=== PATIENT | female | born 1945 | race Caucasian/White ===

== ENCOUNTER 2019-02-12 06:02 | Inpatient (IN) | payer OTHER, SELFPAY ==
[2019-02-10 07:08] VITALS: BMI 37.2
[2019-02-12] VITALS (23 sets, daily range): BP systolic 100–178; BP diastolic 43–96; PULSE 70–110; RESP 10–20; TEMP 36.1–36.8; O2SAT 92–99; BMI 37.8
--- NOTE | 2019-02-12 | DI.RAD.S_ITS ---
PROCEDURE: XR LUMBAR SPINE 2-3V INDICATIONS: L4-5, L5-S1 TLIF FINDINGS: 2 limited intraoperative fluoroscopically stored images of the lower lumbar spine were obtained for intraoperative hardware localization purposes. These images are not meant for diagnostic purposes. Intraoperative findings related to a lumbar spine fusion procedure are present. IMPRESSION: Intraoperative images obtained in the patient's lumbar spine fusion procedure. Dictated by: Kelvin Whitney M.D. on 02/12/2019 at 15:57 Approved by: Kelvin Whitney M.D. on 02/12/2019 at 16:00
[2019-02-12] MEDS: LACTATED RINGERS 1,000 ML 42 ML IV ×2 (07:00→10:31)
[2019-02-12] MEDS: CEFAZOLIN 2 GM/100 ML FROZ.PIGGY IV ×3 (07:45→23:55)
--- NOTE | 2019-02-12 08:51 | SUR.OPER ---
Prone on spine table, head in foam head support, padded chest and pelvic supports, gel pad at knees, bilateral thighs,and between feet; lower legs supported by pillows; nipples, genitalia and toes free of pressure, arms secured on foam padded arm boards at <90 degrees abduction. Tape over blanket at thigh secured to table.
--- NOTE | 2019-02-12 08:57 | SUR.OPER ---
Bruise X2 on patient's left posterior thoracic region noted by Dr. Hermosillo during positioning. Each were reddish with yellow on outer edges. Both were approximately 1 in diameter.
[2019-02-12] MEDS: BUPIVACAINE 0.25% W/ EPI 30 ML VIAL INJ (09:05)
[2019-02-12] MEDS: BUPIVACAINE LIPOSOME 266 MG/20 ML VIAL INJ (09:05)
--- NOTE | 2019-02-12 11:21 | P.OP_ITS ---
Operative Date/Time/Diagnoses Date of procedure: 02/12/19 Time of procedure: 08:19 Pre-op diagnosis: 1. L4-5, L5-S1 spondylolisthesis 2. L4-5, L5-S1 post laminectomy syndrome 3. Spinal stenosis L4-5, L5-S1 Post-op diagnosis: same Procedure & Clinicians Procedure: 1. L4-5, L5-S1 Postero-lateral and posterior interbody fusion 2. L4-5, L5-S1 interbody cage placement. 3. L4-5, L5-S1 decompressive laminectomy with bilateral facetecomies 4. L4-5, L5-S1 Posterior segmental instrumentation 5. Hector of bone marrow from iliac crest 6. Utilization of microsurgical technique and operating microscope Same procedure as scheduled: Yes Indications: Patient has been having chronic back pain and worsening lumbar radiculopathy. Patient failed multiple conservative management with worsening pain weakness and numbness in her lower extremity. Patient has been having difficulty performing activity of daily living. After discussing risks benefits of treatment options, patient elected proceed with surgery. Surgeon: Elier Hermosillo Supervisor [employer]ing: Meredith Elaine Click Yes if Unassisted: No Anesthesia Type: General Operative Notes Closure Type: primary Specimen(s): none sent Prosthetic devices, grafts, tissues, transplants, or devices: GLobus Revolve, Rise cages Applied: catheter Estimated Blood Loss (mL): 150 Blood products transfused: none Procedure in detail: Patient was seen in the preoperative area. Risks and b enefits of the surgery was discussed with the patient. Informed consent was obtained from the patient and placed in the chart. Surgical site was marked. Patient was taken to the operative room. General anesthesia was administered. Prophylactic antibiotic was given to the patient less than 30 min before the incision was made. Patient was placed into a prone position on the Marcellus table. Patient's back was then prepped and draped in the sterile fashion. Time- out was performed at this time. Using AP and lateral C-arm imaging the interval between L4-S1 was identified and marked on patient's back. A 2 inch incision 2 in from midline was made on the left side first. The fascia was incised in line with skin incision. Globus MARS retractors was placed inside the incision and docked onto the L4 and L5 lamina. Using microsurgical technique and operating microscope, a L4 and L5 laminectomy and L4-5 L5-S1 facetectomy was performed using a Kerrison rongeur. During the process of decompression more than 75% of bilateral L4-5 L5-S1 facets were removed in order to decompress the spinal canal and the lateral recess. The L4- 5 L5-S1 level was grossly unstable after the decompression was completed and requiring the fusion procedure. The disc space at L4-5, L5-S1 was identified. And a total diskectomy was performed at L4-5, L5-S1 level. The endplates were decorticated using a rasp and shaver. The total diskectomy and decortication was performed at L4-5, L5-S1 level in order to to accomplish a L4-5, L5-S1 fusion. The local bone from the laminectomy and facetectomy was saved for local bone grafting. After the total diskectomy and decortication was completed, Bio4 bone graft material was combined with local bone that was harvested earlier. At this time, a separate skin is incision was made over the iliac crest. A Jamshidi needle was inserted into the iliac crest through a separate skin incision. 5 cc of bone marrow aspiration was obtained through the separate skin incision using a Jamshidi needle from the iliac crest. The bone marrow aspiration was combined with local bone and the Bio4 bone grafting material. The bone grafting material was placed into the L4-5, L5-S1 interbody space along with two cages, one expandable cage at each level. The cages were expanded to their maximum height using the torque limiting screwdriver. At this time a mirror image incision was made on the right side. The fascia was incised in line with the skin incision. Globus MARS retractor was inserted and docked onto the L4-5, L5-S1 posterolateral gutter. Using the power drill, posterior-lateral decortication was performed at L4-5, L5-S1 level until bleeding cortical bone was identified. The remaining bone grafting material was placed into the L4-5 L5-S1 posterior lateral gutter he order to accomplish posterolateral fusion at the L4-5 L5-S1 levels. Using the double C-arm technique, pedicle screws were placed into the L4, L5, S1 pedicles bilaterally. This was done by placing the Jamshidi needle into the pedicles, then placing the guidewires over the Jamshidi needle, and finally placing the cannulated screws over the guidewires bilaterally. After the pedicle screws were placed, 2 titanium rods was locked into the heads of the pedicle screws using locking caps and torque limiting screwdriver. Total 6 pedicles screws were placed. Threaded toll operator was used to reduce the patient's spondylolisthesis which was done successfully. After all the hardware was placed, and confirmed with AP and lateral C-arm imaging, the wound was then irrigated with sterile normal saline and packed with Ray-Raymon gauze for 3 min to accomplish hemostasis. After the gauze was removed the deep fascia was closed with #1 Vicryl suture. The subcutaneous layer was closed with 2-0 Vicryl. The skin was closed with skin galilea. Patient tolerated the procedure well. There were no complications. Complications: none Condition: stable Disposition: PACU Plan for aftercare: Admit to inpatient hospital
--- NOTE | 2019-02-12 12:41 | SUR.PHASEI ---
pt will arouse after much stimulus and then falls right back to sleep. She does not like to be awake and RN has awakened her frequently.
[2019-02-12] MEDS: hydrOXYzine 50 MG/ML INJ 25 MG IM (13:09)
--- NOTE | 2019-02-12 13:11 | SUR.PHASEI ---
pt awake now and talking states it always takes her a long time for her to wake up from anesthesia.
[2019-02-12] MEDS: OXYCODONE/ACETAMINOPHEN 5/325 TABLET 2 TAB PO (13:19)
[2019-02-12] MEDS: MORPHINE 2 MG/ML INJ IV ×2 (15:30→20:25)
[2019-02-12] MEDS: SODIUM CHLORIDE 0.9% 1,000 ML 100 ML IV (15:30)
--- NOTE | 2019-02-12 16:00 | CM.DANOTE ---
saw patient 02/12/19 at 1500, spoke with patient and , explained tentative plan of care during stay. answered husbands questions concerning insurance coverage and 3 day minimum stay for inpatient. Patient lives at home and ins independant. physically active - including daily long walks. A&O x 4, Anticipates d/c home without needs. PT eval pending, PT. request for pain medicine delivered to primary RN. Plan: Follow for likely discharge home pending PT eval. Discharge Planning/Care Management CM Discharge Assessment Start: 02/12/19 15:53 Freq: Status: Active Protocol: Document 02/12/19 15:54 [facility]Rec: 02/12/19 16:00 [id number] Discharge Planning Assessment Assigned Transitions Manager Rn Elizabeth BENZ/Assigned Designee Name Marco Antonio Dolan Contact Information [phone] Advance Directives? Yes Advance Directives on File No History Provided By Patient Family Member Expected Length of Stay 3 Has Patient been admitted in last 30 No days? Prior Living Arrangements House Household Members spouse Type of transporation used prior to Drives own vehicle admit Independent with ADL's Yes Is patient alert and oriented? Yes Caregiver for Another Yes: Comment plans on going home with at D/c Barriers to Discharge No Discharge Plan Home Referrals Initiated None needed If patient plan is SNF: Has PASSR been No completed? Whiteboard Updated in Patient Room with Yes name and ext. # of Transitions Manager Rn Review Status In Process Please Provide Date Initial DC 02/12/19 Assessment Was Performed Next Review Type Continued Stay Review Pre-Anesthesia Assessment Start: 02/10/19 07:08 Freq: Status: Active Protocol: Document 02/10/19 07:08 [facility] (Rec: 02/10/19 08:18 CAB [id number]) Pre-Anesthesia Assessment Patient Information Reviewed Via Phone Assessment Assessment Completed With Patient Diagnostic Results BMP/CMP CBC EKG Urinalysis Comment Outside labs/EKG 01/22/19 scanned to record Primary Care Provider Kehinde Byers Medical Clearance Received Yes Seen Specialist in Last 12 Months Yes Specialist Seen Orthopedist Comment PCP visit 01/22/19 scanned to record Primary Language Beninese Sheet Rock Hanger Required No Height 172.72 cm Weight 111.13 kg Body Mass Index (BMI) 37.2 Hearing Ability Normal Visual Assist Glasses Dentition Type Teeth, Natural Present Barriers to Learning None Other Aids No Hx Anesthesia Reactions Yes: It takes a lot to take me down and bring me up. Spinal didn't work Hx Family Anesthesia Reaction No Hx Malignant Hyperthermia No Hx Blood Transfusions No Anesthesia Review Requested No Infant Nanny No Alcohol Intake Frequency Other: None Smoking Status Never smoker Substance Use Type does not use Pain Present Pain Reported Musculoskeletal Symptoms Abnormal Gait Back Pain Difficulty Walking Joint Pain Neck Pain Numbness Radiating Pain into Limb Tingling History of Falling (Recent or History of Yes ) Patient is completely paralyzed or No completely immobile Mental Status Oriented to own ability Is patient on oxygen? No Does patient have MOBLEY/SOB No Hx Sleep Apnea Yes CPAP/BIPAP use prescribed and used routinely Will Bring CPAP/BIPAP DOS Yes Currently Taking a Beta Ronel No Can You Climb a Flight of Stairs Without Yes SOB Hx Chest Pain No Hx SOB No Hx Syncope or Dizziness No Anti-Coagulant Therapy No Has a Fmd Teacher No Cardiac Testing No Hx Pacemaker/ICD No Pacemaker Rep Required? No Cardiac Clearance Received Not Applicable Diet Type At Home Regular dysphagia No Bladder Pattern Incontinent Urinary Catheter Present No Hx Urinary Self Catheterization No Diabetes No Patient No Lactating No Hx Drug Resistant Organism No Presence of External or Internal Medical Yes: CPAP, bilat knee, left Devices ankle hardware Have you traveled outside the [facility] [place] in the last 30 days? Marital Status Lives With spouse Prior Living Arrangements House Number of Floors (Floors) One Floor Support System Friend(s) Spouse Patient Discharge Plan Description Return Home Comment Pt advised 3-4 day length of stay per surgeon's office Feels Safe in Current Environment Yes Been Physically Hurt or Threatened By a No Person in Current Environment Do you have thoughts of harming yourself None or others? Are you currently considering suicide? No Do you have a plan to hurt yourself or No Plan others? Do You Have Any Spiritual Beliefs That No May Affect Your HC Choices? Do You Have Any Cultural Practices That No May Affect Your HC Choices? Spiritual Referral None Comment Anabaptism Who Can We Speak to About Patient's Care Family, friends Identifying Code for Release of Patient Declines to issue Information Health Care Proxy/Next of Kin Marco Antonio () Health Care Proxy Emergency Contact Name Marco Antonio () Emergency Contact Advance Directives? Yes Advance Directives on File No Requested Patient Bring Advanced Yes Directives DOS Power of Csm Consultant Yes Power of Csm Consultant Name Marco Antonio () Power of Csm Consultant PAC Instructions Bring CPAP/BIPAP Durable medical equipment Medications to take/avoid Nasal antibiotic No ETOH/petroleum product on skin DOS NPO Post-op transportation Pre-surgical wash Sturdy shoes/comfortable clothes Do not bring valuables and remove jewelry
[2019-02-12] MEDS: OXYCODONE IR 5 MG TABLET 10 MG PO ×2 (18:45→23:58)
[2019-02-12] MEDS: SENNOSIDES 8.6 MG TABLET 17.2 MG PO (18:46)
[2019-02-12] MEDS: DOCUSATE 100 MG CAPSULE PO (18:49)
[2019-02-13] VITALS (7 sets, daily range): BP systolic 109–138; BP diastolic 56–71; PULSE 73–83; RESP 16–18; TEMP 36.8–38.4; O2SAT 93–95
[2019-02-13] MEDS: hydrOXYzine pamoate 25 MG CAPSULE PO ×2 (00:50→08:12)
--- NOTE | 2019-02-13 01:01 | PC.NURSE ---
Addendum entered by Delilah Alberto R.N. 02/13/19 02:56: Declined offer of pain medication at this time and refused to be repositioned. Original Note: Patient is alert and oriented. Breath sounds CTA with RA sat of 94%. HRR. Denies nausea. BT present but denies flatus. Indwelling catheter is patent with clear yellow urine in bag. Dressing to back is CDI. Does have some bruising noted on left side of back. Needing assist to reposition q2h. CMS is intact. Complains of 6/10 pain so was medicated with Oxycodone and now states pain is down to 5/10 so medicated additionally with Vistaril and discussed that if pain doesn't become more tolerable there is IV pain medication she can also have; verbalizes understanding. Wearing foot SCD's. Reports recent fall; fall risk is high and bed alarm is activated.
[2019-02-13] MEDS: SODIUM CHLORIDE 0.9% 1,000 ML 100 ML IV ×3 (03:04→22:42)
[2019-02-13] MEDS: OXYCODONE IR 5 MG TABLET 10 MG PO ×5 (05:19→17:03)
[2019-02-13 05:48] LABS: Hematocrit 34.5 % (36-46); Hemoglobin 11.7 g/dL (12.0-16.0)
[2019-02-13] MEDS: MULTIVITAMIN 1 TABLET 1 TAB PO (08:12)
[2019-02-13] MEDS: PANTOPRAZOLE 20 MG TABLET PO (08:12)
[2019-02-13] MEDS: LOSARTAN 50 MG TABLET 100 MG PO (08:12)
[2019-02-13] MEDS: AMLODIPINE 5 MG TABLET PO (08:12)
[2019-02-13] MEDS: ESCITALOPRAM 10 MG TABLET PO (08:12)
[2019-02-13] MEDS: DOCUSATE 100 MG CAPSULE PO ×2 (08:13→21:02)
--- NOTE | 2019-02-13 09:55 | PT.IIE ---
Current Diagnoses Spondylolisthesis, lumbar region (02/12/19) Spinal stenosis, lumbar region without neurogenic claudication (02/12/19) Postlaminectomy syndrome, not elsewhere classified (02/12/19) Surgery Performed Operation Date: 02/12/19 07:45 Actual Procedures p L4-5,L5-S1 TLIF w/Posterior Instru. - Elier Hermosillo MD Surgical History (Last Updated 02/10/19 @ 07:21 by Ginger Beebe RN) History of arthroplasty of left knee (Acute 08/12/17) History of arthroplasty of right knee (Acute) History of back surgery (Acute) Hx of tonsillectomy (Acute) Medical History (Last Updated 02/10/19 @ 08:03 by Ginger Beebe RN) Ankle fracture, left (Acute) Anxiety (Acute) Arm fracture, left (Acute) Arthritis (Acute) Mejia's esophagus (Acute) Chronic low back pain (Acute) Hiatal hernia (Acute) Impaired vision (Acute) Rosacea (Acute) Sleep apnea (Acute) Physical Therapy Inpatient Evaluation/Re-Eval M1 PT/OT-IP Prior Functional Status Start: 02/13/19 13:06 Freq: NEEDED Status: Active Protocol: Document 02/13/19 09:55 AB (Rec: 02/13/19 13:19 AB [id number]) Medical Review Prior Functional Status Medical History Reviewed Yes Communication able to make needs known Mobility and Gait pt stated that she is independent with all mobilities and ambulation without AD Social History Household Members spouse Living Arrangements House Number of Floors (Floors) One Floor Number of Stairs To Enter/Railing? 2 platform steps to enter without rails Home Environment High Toilet Walk in Shower Built-In Shower Seat Home Equipment Front Wheel Walker Hand Held Shower Grab Bars In Shower Additional Social History Comment pt has an adjustable bed M2 PT-IP Current Condition Start: 02/13/19 13:06 Freq: NEEDED Status: Active Protocol: Document 02/13/19 09:55 AB (Rec: 02/13/19 13:19 AB [id number]) Physical Therapy Current Condition Current Condition Evaluation Date 02/13/19 Treatment Diagnosis s/p L4-S1 fusion/lami; difficulty in walking Onset Date 02/12/19 Precautions Lumbar Precautions Log Roll No Twisting Limit Bending Lifting Restriction of 10 lbs Gait Belt above Incisional Area M3 PT-IP Subjective Start: 02/13/19 13:06 Freq: NEEDED Status: Active Protocol: Document 02/13/19 09:55 AB (Rec: 02/13/19 13:19 AB [id number]) Subjective Physical Therapy Visit Type Type Initial Evaluation Visit Start Time 09:55 Visit Stop Time 10:45 Total Visit Minutes 50 Number of BRAKE OPERATOR HELPER Visits 0 Physical Therapy Visit Comments Patient Comments pt agreeable to do PT Therapy Pain Assessment Pain When Pain Assessed At Rest Pain Present Pain Present Pain Reported Location Lower Back Intensity 6 Scale Used Numeric (1 - 10) Description Burning Pain Management Techniques Apply Cold Re-positioning Timing of Activity with Medications M4 PT-IP Mobility and Gait Start: 02/13/19 13:06 Freq: NEEDED Status: Active Protocol: Document 02/13/19 09:55 AB (Rec: 02/13/19 13:19 AB [id number]) PT-Bed Mobility Assessment Rolling Type of Rolling Log Rolling Level of Assist Maximal Assistance Supine to Sit Supine to Sit Maximum Assistance 1 Person Assistance Scooting Scooting to Edge of Bed Maximum Assistance PT-Transfer Assessment Sit to and From Stand Sit to and from Stand Moderate Assistance 1 Person Assistance Use of Upper Extremities Equipment Transfer Assistive Device Gait Belt Front Wheeled Walker Orthotic/Prosthetic Devices or Brace: No Transfers Transfer Destination Chair Transfer Technique Stand Step Pivot Transfer Ability Level of Assist Maximum Assistance 1 Person Assistance Use of Upper Extremities Comments Mobility Comments BP supine: 114/56 pt completed supine to sit max A and cues. c/o dizziness sitting. BP checked: 128/64. pt completed sit to stand mod A and cues. c/o increase pain to 8/10. unable to ambulate but completed transfer to the chair using FWW max A and cues. BP checked after transfers: 99/55. positioned pt on chair, ice pack provided . BP checked again: 87/49. elevated LE. BP checked: 105/ 57. call light and table placed within pt's reach. informed nurse. Gait Assessment Comments Gait Comments unable at this time PT-Balance Assessment Sitting Balance and Reactions Static Sitting Balance Ability Good Dynamic Sitting Balance Ability Good Standing Balance and Reactions Static Standing Balance Ability Fair Dynamic Standing Balance Ability Fair Device Used FWW M5 PT-IP Objective Assessments Start: 02/13/19 13:06 Freq: NEEDED Status: Active Protocol: Document 02/13/19 09:55 AB (Rec: 02/13/19 13:19 AB [id number]) Orientation Orientation/Cognition Level of Alertness Alert Orientation Name Place Situation Language Function Ability No Deficits Noted Safety Awareness Understands Safety Issues Memory Description No Deficits Noted Gross Range of Motion Lower Extremity ROM Assessment Within Functional Limits Strength Lower Extremity Strength Assessment Bilaterally Impaired Hip 3+/5 Knee 3+/5 Coordination Assessment Gross Coordination Gross Coordination WNL Sensation Assessment Sensation Gross Sensation WNL Muscle Tone Muscle Tone WNL Yes M6 PT-IP Treatment Start: 02/13/19 13:06 Freq: NEEDED Status: Active Protocol: Document 02/13/19 09:55 AB (Rec: 02/13/19 13:19 AB [id number]) Physical Therapy Treatment Education Education Provided Precautions Weight Bearing Status Post-Op Packet Safety M7 PT-IP Assessment and Plan Start: 02/13/19 13:06 Freq: NEEDED Status: Active Protocol: Document 02/13/19 09:55 AB (Rec: 02/13/19 13:19 AB [id number]) PT Summary Assessment and Plan Potential Rehabilitation Potential Fair Status of Condition at Evaluation Evolving Summary Impairments Pain ROM Strength Balance Coordination Bed Mobility Transfers Gait Activity Tolerance Assessment Summary pt requiring max A with mobility and unable to tolerate much with c/o increase pain and also has decrease in BP with upright activity. d/c plan depending on progress but may require SNF rehab. will continue to assess. Goals Bed Mobility Goal Standby Assistance Transfer Goal Standby Assistance Front Wheeled Walker Gait Goal Standby Assistance Front Wheel Walker Gait Distance 150 Other Goals up/down 2 platform steps using FWW CGA Days to Meet Goals 5 Frequency of Treatment Frequency Of Treatment Twice a Day Treatment Plan Physical Therapy Treatment Plan Bed Mobility Training Transfer Training Gait Training Therapeutic Exercise Balance Retraining Post Op Education Discharge Planning Hot or Cold Pack Neuromuscular Re-ed Coordination Retraining Manual Therapy Recommendations To Nursing Amount of Assist Needed 1 Person Assist Discharge Recommendations PT Discharge Recommendations Home with 25/03 Assist Home Health SNF Rehab Other Discharge Recommendations depending on progress: SNF vs home and home health PT
--- NOTE | 2019-02-13 10:23 | PM.PNPO.1 ---
Subjective Date Patient Seen: 02/13/19 Time Patient Seen: 10:23 Interval history: Patient is POD#1 s/p L4-5, L5-S1 TLIF with Dr. Hermosillo. Her pain has been controlled with oxycodone. She has not yet mobilize with PT or moved to chair. Urinary catheter in place. Denies chest pain, shortness of breath, fevers, chills. Exam Vital Signs (past 8 hours): - 02/13/19 05:25 02/13/19 08:00 Temperature 98.3 F 98.5 F Pulse Rate 74 77 Respiratory Rate 18 18 Blood Pressure 124/62 133/71 Pulse Oximetry 95 94 Oxygen Delivery Method Room Air Oxygen Flow Rate 0 Narrative Exam Narrative: 73 year old female resting in bed. Somewhat drowsy but oriented in no acute distress. Dressing in place is clean, dry and intact. Intact dorsiflexion/plantar flexion of the ankle and toes. Sensation intact to light touch. Palpable pedal pulse. Calves soft, compressible bilaterally. Objective Labs Result Diagrams: 02/13/19 05:15 Labs: Laboratory Results - last 24 hr 02/13/19 05:15 Hgb 11.7 L Hct 34.5 L Assessment & Plan Post-op Postoperative Procedures Operation Date: 02/12/19 07:45 Actual Procedures Side Surgeon p L4-5,L5-S1 TLIF w/Posterior Instru. Elier Hermosillo MD Patient doing well. Goals for today include mobilizing with physical therapy and continuing pain control. Cather to remain in place today as she has not yet mobilized and has history of incontinence. Quality VTE Deep Vein Thrombosis/Pulmonary Embolism Present on Admission: No
--- NOTE | 2019-02-13 15:19 | PT.IPTN ---
Current Diagnoses Spondylolisthesis, lumbar region (02/12/19) Spinal stenosis, lumbar region without neurogenic claudication (02/12/19) Postlaminectomy syndrome, not elsewhere classified (02/12/19) Surgery Performed Operation Date: 02/12/19 07:45 Actual Procedures p L4-5,L5-S1 TLIF w/Posterior Instru. - Elier Hermosillo MD Physical Therapy Treatment Note M2 PT-IP Current Condition Start: 02/13/19 13:06 Freq: NEEDED Status: Active Protocol: Document 02/13/19 09:55 AB (Rec: 02/13/19 13:19 AB [id number]) Physical Therapy Current Condition Current Condition Evaluation Date 02/13/19 Treatment Diagnosis s/p L4-S1 fusion/lami; difficulty in walking Onset Date 02/12/19 Precautions Lumbar Precautions Log Roll No Twisting Limit Bending Lifting Restriction of 10 lbs Gait Belt above Incisional Area M3 PT-IP Subjective Start: 02/13/19 13:06 Freq: NEEDED Status: Active Protocol: Document 02/13/19 15:19 AB (Rec: 02/13/19 17:10 AB [id number]) Subjective Physical Therapy Visit Type Type Treatment Note Visit Start Time 15:19 Visit Stop Time 15:49 Total Visit Minutes 30 Number of LAND [employer] RENT[employer] MANAGER Visits 0 Physical Therapy Visit Comments Patient Comments pt agreeable to do PT Therapy Pain Assessment Pain When Pain Assessed At Rest Pain Present Pain Present Pain Reported Location Lower Back Intensity 5 Scale Used Numeric (1 - 10) Pain Management Techniques Re-positioning Timing of Activity with Medications M4 PT-IP Mobility and Gait Start: 02/13/19 13:06 Freq: NEEDED Status: Active Protocol: Document 02/13/19 15:19 AB (Rec: 02/13/19 17:10 AB [id number]) PT-Bed Mobility Assessment Rolling Type of Rolling Log Rolling Level of Assist Moderate Assistance Supine to Sit Supine to Sit Moderate Assistance 1 Person Assistance Bedrails Sit to Supine Sit to Supine Maximum Assistance 1 Person Assistance Scooting Scooting to Edge of Bed Minimal Assistance PT-Transfer Assessment Sit to and From Stand Sit to and from Stand Moderate Assistance 1 Person Assistance Use of Upper Extremities Equipment Transfer Assistive Device Gait Belt Front Wheeled Walker Orthotic/Prosthetic Devices or Brace: No Comments Mobility Comments BP in supine: 147/66 BP prior to walkin/63 BP after walkin/68 Gait Assessment Gait Gait Assistance Required: Minimum Assistance Moderate Assistance Distance (Feet) 40 Able to Maintain Weight Bearing Status Yes During Gait Assistive Devices Assistive Device Gait Belt Front Wheeled Walker Orthotic/Prosthetic Devices or Brace: No Gait Deviations General Gait Pattern Antalgic Decreased Stride Length Decreased Feet Clearance Flexed Trunk Factors Limiting Gait Function Factors Limiting Gait Function Decreased Activity Tolerance Decreased Strength Difficulty Following Directions Limited Range of Motion Pain Poor Balance Poor Safety Awareness Comments Gait Comments pt requiring increase assistance towards end of ambulation with increase unsteadiness and increase trunk flexion. M5 PT-IP Objective Assessments Start: 02/13/19 13:06 Freq: NEEDED Status: Active Protocol: Document 02/13/19 09:55 AB (Rec: 02/13/19 13:19 AB [id number]) Orientation Orientation/Cognition Level of Alertness Alert Orientation Name Place Situation Language Function Ability No Deficits Noted Safety Awareness Understands Safety Issues Memory Description No Deficits Noted Gross Range of Motion Lower Extremity ROM Assessment Within Functional Limits Strength Lower Extremity Strength Assessment Bilaterally Impaired Hip 3+/5 Knee 3+/5 Coordination Assessment Gross Coordination Gross Coordination WNL Sensation Assessment Sensation Gross Sensation WNL Muscle Tone Muscle Tone WNL Yes M6 PT-IP Treatment Start: 02/13/19 13:06 Freq: NEEDED Status: Active Protocol: Document 02/13/19 15:19 AB (Rec: 02/13/19 17:10 AB [id number]) Physical Therapy Treatment Education Education Provided Precautions Safety M7 PT-IP Assessment and Plan Start: 02/13/19 13:06 Freq: NEEDED Status: Active Protocol: Document 02/13/19 15:19 AB (Rec: 02/13/19 17:10 AB [id number]) PT Summary Assessment and Plan Potential Rehabilitation Potential Good Summary Impairments Pain ROM Strength Balance Coordination Bed Mobility Transfers Gait Activity Tolerance Progress Towards Goals Slow Progress due to Pain Slow Progress due to Activity Tolerance Assessment Summary pt is progressing slowly but continues to require mod A with mobility. d/c plan depending on progress. will conduct caregiver training when appropriate and will also complete stair climbing training. pt at this time may require SNF rehab. will continue to assess. Goals Bed Mobility Goal Standby Assistance Transfer Goal Standby Assistance Front Wheeled Walker Gait Goal Standby Assistance Front Wheel Walker Gait Distance 150 Other Goals up/down one platform step using FWW CGA Days to Meet Goals 5 Frequency of Treatment Frequency Of Treatment Twice a Day Treatment Plan Physical Therapy Treatment Plan Bed Mobility Training Transfer Training Gait Training Therapeutic Exercise Balance Retraining Post Op Education Discharge Planning Hot or Cold Pack Neuromuscular Re-ed Coordination Retraining Manual Therapy Other Recommendations and Next Treatment ambulation, caregiver training Focus Recommendations To Nursing Amount of Assist Needed 2 Person Assist Discharge Recommendations PT Discharge Recommendations Home with 25/03 Assist Home Health SNF Rehab
--- NOTE | 2019-02-13 15:33 | PC.NURSE ---
Day Shift Pt worked with PT and had orthostatic BP. UP in chair for over an hour, on return, pt states she is light headed, dizzy and nauseated. Was able to return to bed without incident. Did not check BP. IVF continue to run at ordered rate. Pt had only a few bites of sandwhich at lunch and limited fluid intake. medicated with 10 mg oxy for pain, did not give vistaril this shift.
--- NOTE | 2019-02-13 16:58 | PC.NURSE ---
Patient is A&O x4, pleasant and cooperative w/ staff members and is able to make needs known when nec. Patinet is POD #1, drg. CDI, patient denies any numbness or ting. to BLE, CMS intact and PP are strong and palp. Patient reports pain 8/10 but denies tx while company is visiting. Post company leaving at 1710, pt req. treatment (see MAR for details). Call light w/ in reach, bed in low pos. alarm active. Pt is aware to use call gonzales w/ needs.
--- NOTE | 2019-02-13 17:43 | OT.IP.EVAL ---
Current Diagnoses Spondylolisthesis, lumbar region (02/12/19) Spinal stenosis, lumbar region without neurogenic claudication (02/12/19) Postlaminectomy syndrome, not elsewhere classified (02/12/19) Surgery Performed Operation Date: 02/12/19 07:45 Actual Procedures p L4-5,L5-S1 TLIF w/Posterior Instru. - Elier Hermosillo MD Past Medical History (Last Updated 02/10/19 @ 08:03 by Ginger Beebe RN) Ankle fracture, left (Acute) Anxiety (Acute) Arm fracture, left (Acute) Arthritis (Acute) Mejia's esophagus (Acute) Chronic low back pain (Acute) Hiatal hernia (Acute) Impaired vision (Acute) Rosacea (Acute) Sleep apnea (Acute) Surgical History (Last Updated 02/10/19 @ 07:21 by Ginger Beebe RN) History of arthroplasty of left knee (Acute 08/12/17) History of arthroplasty of right knee (Acute) History of back surgery (Acute) Hx of tonsillectomy (Acute) Occupational Therapy Inpatient Evaluation/Re-Eval M1 PT/OT-IP Prior Functional Status Start: 02/13/19 14:36 Freq: NEEDED Status: Active Protocol: Document 02/13/19 15:22 [facility] (Rec: 02/13/19 17:43 [facility] [id number]) Medical Review Prior Functional Status Medical History Reviewed Yes Communication able to make needs known Mobility and Gait pt stated that she is independent with all mobilities and ambulation without AD Activities of Daily Living and IADL's Pt states able to do with increased time for ADl's. Social History Household Members spouse Living Arrangements House Number of Floors (Floors) One Floor Number of Stairs To Enter/Railing? 2 platform steps to enter without rails Home Environment High Toilet Walk in Shower Built-In Shower Seat Home Equipment Front Wheel Walker Hand Held Shower Grab Bars In Shower Additional Social History Comment pt has an adjustable bed M2 OT-IP Current Condition Start: 02/13/19 14:36 Freq: Status: Active Protocol: Document 02/13/19 15:22 [facility] (Rec: 02/13/19 17:43 [facility] [id number]) Occupational Therapy Current Condition Current Condition Evaluation Date 02/13/19 Treatment Diagnosis Spinal Stenosis Diagnosis Onset Date 02/12/19 Post Operative Precautions Lumbar Precautions Log Roll No Twisting Limit Bending Lifting Restriction of 10 lbs Gait Belt above Incisional Area Weight Bearing Status Weight Bearing Status Weight Bear as Tolerated M3 OT- IP Subjective and Pain Start: 02/13/19 14:36 Freq: Status: Active Protocol: Document 02/13/19 15:22 [facility] (Rec: 02/13/19 17:43 [facility] [id number]) OT- Subjective Occupational Therapy Visit Type Type Initial Evaluation Visit Start Time 15:22 Visit Stop Time 15:49 Total Visit Minutes 27 Occupational Therapy Visit Comments Patient Comments Pt not initially wanting to get up, but able to get up when seen pt with PT in PM. Patient/Caregiver Goals Pt wanting to go home. OT Pain Assessment Pain When Pain Assessed At Rest Pain Present Pain Present Pain Reported Location Lower Back Intensity 7 Scale Used Numeric (1 - 10) M4 OT- IP ADL's Start: 02/13/19 14:36 Freq: Status: Active Protocol: Document 02/13/19 15:22 [facility] (Rec: 02/13/19 17:43 [facility] [id number]) OT ADL-Dressing General Eval Lower Body Dressing Ability Maximum Assistance Areas Needing Assistance Socks OT ADL-Toileting Comments OT Toileting Comments Pt still has catheter in. Educated pt to stand for wiping. Pt states already wears briefs, pt would benefit from BSC at home. OT ADL-Bathing Comments OT Bathing Comments Not ready at this time. M5 OT- IP IADL's Start: 02/13/19 14:36 Freq: Status: Active Protocol: Document 02/13/19 15:22 [facility] (Rec: 02/13/19 17:43 [facility] [id number]) OT-Instrumental Activities of Daily Living Home Safety Awareness Home Safety Comments Pt's will assist for needs at home. Central Office Frame Wirer Central Office Frame Wirer Caregiver Provides Assist M6 OT- IP Functional Cognition Start: 02/13/19 14:36 Freq: Status: Active Protocol: Document 02/13/19 15:22 [facility] (Rec: 02/13/19 17:43 [facility] [id number]) Cognitive Factors Limiting Selfcare Function Cognitive Ability Level of Alertness Alert Patient Orientation Name Place Situation Attention Span Ability Capable of Focused Attention Capable of Sustained Attention Ability to Follow Commands Able to Follow One Step Commands Memory Description Short Term Impaired Safety Awareness Decreased Recall of Precautions Decreased Ability to Apply Precautions Underestimates Need for Assistance Problem Solving Ability Unable to Identify Errors Needs Assist to Identify Solutions Cognitive Comments Cognitive Assessment Comments Pt not able to recall any back precautions, after education still only able to recall 2 out of the 3. Pt needing vc for safety for hand placement coming to stand and sitting. OT- Vision and Hearing OT- Hearing Assessment OT- Hearing Assessment WFL M7 OT- IP Mobility and Balance Start: 02/13/19 14:36 Freq: Status: Active Protocol: Document 02/13/19 15:22 [facility] (Rec: 02/13/19 17:43 [facility] [id number]) OT- Bed Mobility Assessment Rolling Type of Rolling Roll to Right Level of Assistance Moderate Assistance Supine to Sit Supine to Sit Assist Moderate Assistance Sit to Supine Sit to Supine Assist Maximum Assistance Scooting Scooting to Edge of Bed Minimal Assistance OT-Transfer Assessment Sit to and From Stand Sit to and from Stand Moderate Assistance 1 Person Assistance Transfers Transfer Ability Moderate Assistance 1 Person Assistance Technique Transfer Destination Bed Transfer Technique Stand Step Pivot Devices Transfer Assistive Devices Gait Belt Front Wheeled Walker OT- Gait Assessment Gait Gait Assistance Required: Moderate Assistance 1 Person Assist Assistive Devices Assistive Device Gait Belt Front Wheeled Walker Comments Gait Ability Comments Pt MODA x1 with FWW and as tires leans, pushes FWW to the right and needing assist to keep FWW close to her. Pty only able to tolerate walking to the doorway and back. OT- Balance Assessment Sitting Balance and Reactions Static Sitting Balance Ability Good Standing Balance and Reactions Static Standing Balance Ability Fair M8 OT- IP Objective Assessments Start: 02/13/19 14:36 Freq: Status: Active Protocol: Document 02/13/19 15:22 [facility] (Rec: 02/13/19 17:43 [facility] [id number]) OT Gross Range of Motion Upper Extremity Range of Motion Assessment Within Functional Limits OT Strength Upper Extremity Strength Assessment Within Functional Limits M9 OT- IP Assessment and Plan Start: 02/13/19 14:36 Freq: Status: Active Protocol: Document 02/13/19 15:22 [facility] (Rec: 02/13/19 17:43 [facility] [id number]) OT Summary Assessment and Plan Potential Rehabilitation Potential Good Analytic Complexity at Evaluation Low Summary OT Impairments Pain Strength Balance Functional Cognition Functional Mobility Grooming Dressing Toileting Bathing Toilet Transfers Shower Transfers Progress Towards Goals Slow Progress due to Pain Slow Progress due to Medical Issues Slow Progress due to Cognition Assessment Summary Pt low complexity and main barrier are steps, bed mobility and needing extensive assist for ADl's at this time . Pt may benefit from short skilled rehab versus home with 's assist pending caregiver training. Pt mainly worried that she is incontinent and will not be able to get to the bathroom on time. Goals Grooming Goal Standby Assistance Dressing Goal Minimal Assistance Toileting Goal Minimal Assistance Bathing Goal Minimal Assistance Toilet Transfer Goal Standby Assistance Shower Transfer Goal Contact Guard Assistance Patient/Caregiver Education Goal Demonstrate Post-Op Precautions Caregiver Independent Assisting Patient Days to Meet Goals 3 Frequency of Treatment Frequency Of Treatment Once a Day Treatment Plan OT Treatment Plan ADL Training Functional Cognition Training Functional Mobility Patient/Family Education Discharge Planning Other Treatment Recommendations and Next Stand at sink, LB dressing Treatment Focus Discharge Recommendations OT Discharge Recommendations Home with Assistance SNF Rehab Pt would benefit form BSC.
[2019-02-13] MEDS: SENNOSIDES 8.6 MG TABLET 17.2 MG PO (21:02)
[2019-02-14] VITALS (7 sets, daily range): BP systolic 130–151; BP diastolic 64–83; PULSE 74–85; RESP 16–18; TEMP 36.8–38.4; O2SAT 92–98
[2019-02-14] MEDS: ACETAMINOPHEN 325 MG TABLET 650 MG PO ×3 (00:48→20:25)
[2019-02-14] MEDS: OXYCODONE IR 5 MG TABLET 10 MG PO ×3 (01:31→20:25)
--- NOTE | 2019-02-14 03:59 | PC.NURSE ---
Addendum entered and electronically signed by Benny Adorno R.N. 02/14/19 05:56: Pt refused pain medications the first part of the shift. Then stated she needed to call 911, because she was at pain level 12. Pt has been demanding the whole gm. When she hasn't had prompt attention with movement she moved herself and then complained we didn't help her and has shown a passive aggressive attitude toward anything that was asked of her for the rest of the night. Pt. was upset when I stepped out of the room when she needed a boost, I needed to consult with the charge nurse about critical values on another patient. Original Note: Pt is AxOx3, but in quite a bit of pain. Pain level has been 8-9/10 on this shift. Pt has been re-positioned, ice applied, medicated w/ 10mg of oxycodone that is available Q3 PRN. Pt has had elevated temp on shift of 101.1. Pt was given Tylenol and encouraged to use IS and do deep breathing and coughing. Lung sounds are clear and BP 136/62 P 84. Pedal pulses are strong, CMS intact. Dressing is clean/dry and intact.
--- NOTE | 2019-02-14 06:14 | PC.NURSE ---
Barber removed per order. Brief placed on as pt states she is incontinent. Pt advised this underwriter solicitation director that she is very unhappy with the care provided on this shift. States I was in extreme pain and I had to turn myself. This underwriter solicitation director expressed apologies and made every attempt to reposition to level of comfort. After reposition pt declined further needs. This underwriter solicitation director has spoken to INOCENCIA Zapata and CHARLENE Stanley r/t care received. RN and HEAD PAPER TESTER state they have made every attempt to provide proper care and all care is documented. Email sent to [facility] records manager to notify of the complaint.
--- NOTE | 2019-02-14 06:48 | PC.NURSE ---
patient has been unhappy and in pain refused pain meds till later in shift we turned adjusted whenever she asked but she was just unhappy wished she didnt get surgery did everything we could to make her comfortable
[2019-02-14] MEDS: MULTIVITAMIN 1 TABLET 1 TAB PO (08:44)
[2019-02-14] MEDS: DOCUSATE 100 MG CAPSULE PO ×2 (08:44→20:25)
[2019-02-14] MEDS: ESCITALOPRAM 10 MG TABLET PO (08:44)
[2019-02-14] MEDS: LOSARTAN 50 MG TABLET 100 MG PO (08:44)
[2019-02-14] MEDS: AMLODIPINE 5 MG TABLET PO (08:44)
[2019-02-14] MEDS: PANTOPRAZOLE 20 MG TABLET PO (08:45)
--- NOTE | 2019-02-14 10:25 | PT.IPTN ---
Current Diagnoses Spondylolisthesis, lumbar region (02/12/19) Spinal stenosis, lumbar region without neurogenic claudication (02/12/19) Postlaminectomy syndrome, not elsewhere classified (02/12/19) Surgery Performed Operation Date: 02/12/19 07:45 Actual Procedures p L4-5,L5-S1 TLIF w/Posterior Instru. - Elier Hermosillo MD Physical Therapy Treatment Note M2 PT-IP Current Condition Start: 02/13/19 13:06 Freq: NEEDED Status: Active Protocol: Document 02/13/19 09:55 AB (Rec: 02/13/19 13:19 AB [id number]) Physical Therapy Current Condition Current Condition Evaluation Date 02/13/19 Treatment Diagnosis s/p L4-S1 fusion/lami; difficulty in walking Onset Date 02/12/19 Precautions Lumbar Precautions Log Roll No Twisting Limit Bending Lifting Restriction of 10 lbs Gait Belt above Incisional Area M3 PT-IP Subjective Start: 02/13/19 13:06 Freq: NEEDED Status: Active Protocol: Document 02/14/19 10:50 [facility] (Rec: 02/14/19 12:17 GGD [id number]) Subjective Physical Therapy Visit Type Type Treatment Note Visit Start Time 10:25 Visit Stop Time 10:50 Total Visit Minutes 25 Number of DRAINAGE ENGINEER Visits 1 Physical Therapy Visit Comments Patient Comments Pt willing to work with therapy. Therapy Pain Assessment Pain When Pain Assessed At Rest Pain Present Pain Present Pain Reported Location Lower Back Intensity 5 Scale Used Numeric (1 - 10) Pain Management Techniques Re-positioning Timing of Activity with Medications M4 PT-IP Mobility and Gait Start: 02/13/19 13:06 Freq: NEEDED Status: Active Protocol: Document 02/14/19 10:50 [facility] (Rec: 02/14/19 12:17 GGD [id number]) PT-Bed Mobility Assessment Rolling Type of Rolling Log Rolling Roll to Right Level of Assist Standby Assistance Supine to Sit Supine to Sit Minimal Assistance 1 Person Assistance Scooting Scooting to Edge of Bed Standby Assistance PT-Transfer Assessment Sit to and From Stand Sit to and from Stand Contact Guard Assistance Use of Upper Extremities Equipment Transfer Assistive Device Gait Belt Front Wheeled Walker Orthotic/Prosthetic Devices or Brace: No Transfers Transfer Destination Chair Toilet Transfer Ability Level of Assist Contact Guard Assistance Use of Upper Extremities Gait Assessment Gait Gait Assistance Required: Contact Guard Assist 1 Person Assist Distance (Feet) 150 Able to Maintain Weight Bearing Status Yes During Gait Assistive Devices Assistive Device Gait Belt Front Wheeled Walker Orthotic/Prosthetic Devices or Brace: No Gait Deviations General Gait Pattern Antalgic Decreased Stride Length Decreased Feet Clearance Flexed Trunk Factors Limiting Gait Function Factors Limiting Gait Function Decreased Activity Tolerance Decreased Strength Difficulty Following Directions Limited Range of Motion Pain Poor Balance Poor Safety Awareness M5 PT-IP Objective Assessments Start: 02/13/19 13:06 Freq: NEEDED Status: Active Protocol: Document 02/13/19 09:55 AB (Rec: 02/13/19 13:19 AB [id number]) Orientation Orientation/Cognition Level of Alertness Alert Orientation Name Place Situation Language Function Ability No Deficits Noted Safety Awareness Understands Safety Issues Memory Description No Deficits Noted Gross Range of Motion Lower Extremity ROM Assessment Within Functional Limits Strength Lower Extremity Strength Assessment Bilaterally Impaired Hip 3+/5 Knee 3+/5 Coordination Assessment Gross Coordination Gross Coordination WNL Sensation Assessment Sensation Gross Sensation WNL Muscle Tone Muscle Tone WNL Yes M6 PT-IP Treatment Start: 02/13/19 13:06 Freq: NEEDED Status: Active Protocol: Document 02/14/19 10:50 GGD (Rec: 02/14/19 12:17 GGD [id number]) Physical Therapy Treatment Education Education Provided Precautions Safety M7 PT-IP Assessment and Plan Start: 02/13/19 13:06 Freq: NEEDED Status: Active Protocol: Document 02/14/19 10:50 GGD (Rec: 02/14/19 12:17 GGD [id number]) PT Summary Assessment and Plan Summary Assessment Summary Pt improving with mobility. She was able to progress her gait distance. She had improved posture and standing balance. She did need min a for bed mobility. Frequency of Treatment Frequency Of Treatment Twice a Day Treatment Plan Physical Therapy Treatment Plan Bed Mobility Training Transfer Training Gait Training Therapeutic Exercise Balance Retraining Post Op Education Discharge Planning Hot or Cold Pack Neuromuscular Re-ed Coordination Retraining Manual Therapy Recommendations To Nursing Amount of Assist Needed 1 Person Assist Discharge Recommendations PT Discharge Recommendations Home with 25/03 Assist Home Health SNF Rehab
--- NOTE | 2019-02-14 10:28 | PM.PNPO.1 ---
Subjective Date Patient Seen: 02/14/19 Time Patient Seen: 10:28 Interval history: Patient's pain is [id number]. Denies fever chills. No nausea vomiting. Exam Vital Signs (past 8 hours): - 02/14/19 04:56 02/14/19 08:00 02/14/19 08:45 Temperature 98.3 F 99.3 F 99.3 F Pulse Rate 74 83 Respiratory Rate 16 18 Blood Pressure 130/64 151/82 H Pulse Oximetry 94 98 Oxygen Delivery Method Room Air Oxygen Flow Rate 0 Narrative Exam Narrative: Pleasant 73-year-old female resting comfortably in bed in no apparent distress. Dressing is clean, dry and intact. Motor functions intact distal bilateral lower extremities. Sensation grossly intact to light touch. Both legs are warm and dry. Objective Labs Result Diagrams: 02/13/19 05:15 Assessment & Plan Post-op Postoperative Procedures Operation Date: 02/12/19 07:45 Actual Procedures Side Surgeon p L4-5,L5-S1 TLIF w/Posterior Instru. Elier Hermosillo MD Postop day 2. Status post lumbar fusion. Limit bending, twisting, lifting. Mobilize with physical therapy. Likely discharge home tomorrow. Quality VTE Deep Vein Thrombosis/Pulmonary Embolism Present on Admission: No
--- NOTE | 2019-02-14 10:31 | P.PN_ITS ---
Subjective Date Patient Seen: 02/14/19 Time Patient Seen: 10:28 Interval history: Patient's pain is [id number]. Denies fever chills. No nausea vomiting. Exam Vital Signs (past 8 hours): - 02/14/19 04:56 02/14/19 08:00 02/14/19 08:45 Temperature 98.3 F 99.3 F 99.3 F Pulse Rate 74 83 Respiratory Rate 16 18 Blood Pressure 130/64 151/82 H Pulse Oximetry 94 98 Oxygen Delivery Method Room Air Oxygen Flow Rate 0 Narrative Exam Narrative: Pleasant 73-year-old female resting comfortably in bed in no apparent distress. Dressing is clean, dry and intact. Motor functions intact distal bilateral lower extremities. Sensation grossly intact to light touch. Both legs are warm and dry. Objective Labs Result Diagrams: 02/13/19 05:15 Assessment & Plan Post-op Postoperative Procedures Operation Date: 02/12/19 07:45 Actual Procedures Side Surgeon p L4-5,L5-S1 TLIF w/Posterior Instru. Elier Hermosillo MD Postop day 2. Status post lumbar fusion. Limit bending, twisting, lifting. Mobilize with physical therapy. Likely discharge home tomorrow. Quality VTE Deep Vein Thrombosis/Pulmonary Embolism Present on Admission: No
--- NOTE | 2019-02-14 13:04 | PC.NURSE ---
Pt is awake and up to the commode to try and have a bowel movement. Pt passes a lot of gas and went back to bed. She is a 1pa to get out of bed with walker and gaitbelt. Given percolone earlier this morning and helpful for discomfort. Showered with the help of occupational therapy. Dressing changed to back to water proof barrier dressing. Pt napping and visiting with her .
--- NOTE | 2019-02-14 13:33 | OT.IP.TRT ---
Current Diagnoses Spondylolisthesis, lumbar region (02/12/19) Spinal stenosis, lumbar region without neurogenic claudication (02/12/19) Postlaminectomy syndrome, not elsewhere classified (02/12/19) Surgery Performed Operation Date: 02/12/19 07:45 Actual Procedures p L4-5,L5-S1 TLIF w/Posterior Instru. - Elier Hermosillo MD Occupational Therapy Treatment Note M2 OT-IP Current Condition Start: 02/13/19 14:36 Freq: Status: Active Protocol: Document 02/14/19 13:25 CGR (Rec: 02/14/19 13:33 CGR [id number]) Occupational Therapy Current Condition Current Condition Evaluation Date 02/13/19 Treatment Diagnosis Spinal Stenosis Diagnosis Onset Date 02/12/19 Post Operative Precautions Lumbar Precautions Log Roll No Twisting Limit Bending Lifting Restriction of 10 lbs Gait Belt above Incisional Area Weight Bearing Status Weight Bearing Status Weight Bear as Tolerated M3 OT- IP Subjective and Pain Start: 02/13/19 14:36 Freq: Status: Active Protocol: Document 02/14/19 13:25 CGR (Rec: 02/14/19 13:33 CGR [email or web address]) OT- Subjective Occupational Therapy Visit Type Type Treatment Note Visit Start Time 11:05 Visit Stop Time 11:45 Total Visit Minutes 40 Occupational Therapy Visit Comments Patient Comments Pt agreeable to shower. OT Pain Assessment Pain When Pain Assessed After Treatment Pain Present Pain Present Pain Reported Location Lower Back Intensity 7 Scale Used Numeric (1 - 10) M4 OT- IP ADL's Start: 02/13/19 14:36 Freq: Status: Active Protocol: Document 02/14/19 13:25 CGR (Rec: 02/14/19 13:33 CGR [id number]) OT ADL-Grooming General Evaluation Grooming Ability Standby Assistance Areas Needing Assistance Combing/Brushing Hair Face Washing Comments OT Grooming Comments seated in chair after shower OT ADL-Oral Care General Eval Oral Care Ability Standby Assistance Comments Oral Care Comments seated in chiar after shower OT ADL-Dressing General Eval Upper Body Dressing Ability Independent Lower Body Dressing Ability Minimal Assistance Areas Needing Assistance Underpants/Brief Socks Assistive Devices Dressing Assistive Devices Dressing Stick Bargeman Sock Aid OT ADL-Bathing Bathing Type Bathing Type Shower General Evaluation Bathing Ability Standby Assistance Areas Needing Assistance Retrieving/Setting Up Items Wash/Dry Lower Extremities Devices Bathing Equipment Hand Held Shower Sprayer Shower Chair with Arms M5 OT- IP IADL's Start: 02/13/19 14:36 Freq: Status: Active Protocol: Document 02/13/19 15:22 [facility] (Rec: 02/13/19 17:43 [facility] [id number]) OT-Instrumental Activities of Daily Living Home Safety Awareness Home Safety Comments Pt's will assist for needs at home. Tank Truck Loader Tank Truck Loader Caregiver Provides Assist M6 OT- IP Functional Cognition Start: 02/13/19 14:36 Freq: Status: Active Protocol: Document 02/13/19 15:22 [facility] (Rec: 02/13/19 17:43 [facility] [id number]) Cognitive Factors Limiting Selfcare Function Cognitive Ability Level of Alertness Alert Patient Orientation Name Place Situation Attention Span Ability Capable of Focused Attention Capable of Sustained Attention Ability to Follow Commands Able to Follow One Step Commands Memory Description Short Term Impaired Safety Awareness Decreased Recall of Precautions Decreased Ability to Apply Precautions Underestimates Need for Assistance Problem Solving Ability Unable to Identify Errors Needs Assist to Identify Solutions Cognitive Comments Cognitive Assessment Comments Pt not able to recall any back precautions, after education still only able to recall 2 out of the 3. Pt needing vc for safety for hand placement coming to stand and sitting. OT- Vision and Hearing OT- Hearing Assessment OT- Hearing Assessment WFL M7 OT- IP Mobility and Balance Start: 02/13/19 14:36 Freq: Status: Active Protocol: Document 02/14/19 13:25 CGR (Rec: 02/14/19 13:33 CGR [email or web address]) OT- Bed Mobility Assessment Rolling Type of Rolling Log Rolling Level of Assistance Standby Assistance Bedrails Sit to Supine Sit to Supine Assist Standby Assistance Scooting Scooting to Edge of Bed Standby Assistance OT-Transfer Assessment Sit to and From Stand Sit to and from Stand Contact Guard Assistance Transfers Transfer Ability Contact Guard Assistance Technique Transfer Destination Bed Bedside Commode Chair Shower Stall Devices Transfer Assistive Devices Bed Rail Gait Belt Front Wheeled Walker OT- Gait Assessment Gait Gait Assistance Required: Contact Guard Assist Assistive Devices Assistive Device Gait Belt Front Wheeled Walker OT- Balance Assessment Sitting Balance and Reactions Static Sitting Balance Ability Normal Dynamic Sitting Balance Ability Normal Standing Balance and Reactions Static Standing Balance Ability Good Dynamic Standing Balance Ability Good M8 OT- IP Objective Assessments Start: 02/13/19 14:36 Freq: Status: Active Protocol: Document 02/13/19 15:22 [facility] (Rec: 02/13/19 17:43 [facility] [email or web address]) OT Gross Range of Motion Upper Extremity Range of Motion Assessment Within Functional Limits OT Strength Upper Extremity Strength Assessment Within Functional Limits M9 OT- IP Assessment and Plan Start: 02/13/19 14:36 Freq: Status: Active Protocol: Document 02/14/19 13:25 CGR (Rec: 02/14/19 13:33 CGR [email or web address]) OT Summary Assessment and Plan Potential Rehabilitation Potential Excellent Summary OT Impairments Pain Range of Motion Functional Mobility Grooming Dressing Toileting Bathing Toilet Transfers Shower Transfers Progress Towards Goals Slow Progress due to Pain Slow Progress due to Medical Issues Slow Progress due to Cognition Assessment Summary Pt is progressing towards goals but will benefit from rehab upon discharge. Pt is agreeable after realizing fatigue of taking a shower. Goals Grooming Goal Standby Assistance Dressing Goal Minimal Assistance Toileting Goal Minimal Assistance Bathing Goal Minimal Assistance Toilet Transfer Goal Standby Assistance Shower Transfer Goal Contact Guard Assistance Patient/Caregiver Education Goal Demonstrate Post-Op Precautions Caregiver Independent Assisting Patient Days to Meet Goals 2 Frequency of Treatment Frequency Of Treatment Once a Day Treatment Plan OT Treatment Plan ADL Training Functional Cognition Training Functional Mobility Patient/Family Education Discharge Planning Other Treatment Recommendations and Next Stand at sink, LB dressing Treatment Focus Discharge Recommendations OT Discharge Recommendations SNF Rehab
--- NOTE | 2019-02-14 13:37 | CM.DPNOTE ---
Reviewed chart, according to therapy notes, pt may benefit from SNF if proper cg assist is not available at home. Attempted to meet w/pt to review therapy recommendations and pt looked to be sleeping w/ RN Michelle in stating pt has had some chest pain that they are trying to address now. This INFORMATICS SCIENTIST following closely and will attempt another visit to review DCP options w/pt once medically appropriate. Elo Mccauley MSW
--- NOTE | 2019-02-14 13:43 | CM.DPNOTE ---
Reviewed chart. Therapy notes indicate pt may benefit from SNF stay d/t slow progress. Pt plans to DC home w/spouse to assist. Pt has [facility] which will play a role in DCP to SNF if it's needed an if pt agrees. Attempted to review DCP options w/pt and she was working w/OT CJ, pt very tired afterwards and wanting to rest. This ACTUARIAL INTERNSHIP will return tomorrow, Saturday, and review DCP w/pt to discuss planning for safe DC. VIPUL Coello
--- NOTE | 2019-02-14 15:46 | PT.IPTN ---
Current Diagnoses Spondylolisthesis, lumbar region (02/12/19) Spinal stenosis, lumbar region without neurogenic claudication (02/12/19) Postlaminectomy syndrome, not elsewhere classified (02/12/19) Surgery Performed Operation Date: 02/12/19 07:45 Actual Procedures p L4-5,L5-S1 TLIF w/Posterior Instru. - Elier Hermosillo MD Physical Therapy Treatment Note M2 PT-IP Current Condition Start: 02/13/19 13:06 Freq: NEEDED Status: Active Protocol: Document 02/13/19 09:55 AB (Rec: 02/13/19 13:19 AB [id number]) Physical Therapy Current Condition Current Condition Evaluation Date 02/13/19 Treatment Diagnosis s/p L4-S1 fusion/lami; difficulty in walking Onset Date 02/12/19 Precautions Lumbar Precautions Log Roll No Twisting Limit Bending Lifting Restriction of 10 lbs Gait Belt above Incisional Area M3 PT-IP Subjective Start: 02/13/19 13:06 Freq: NEEDED Status: Active Protocol: Document 02/14/19 15:44 GGD (Rec: 02/14/19 15:46 GGD [id number]) Subjective Physical Therapy Visit Type Type Treatment Note Visit Start Time 15:10 Visit Stop Time 15:40 Total Visit Minutes 30 Number of CLINICAL RESEARCH PHYSICIAN Visits 2 Physical Therapy Visit Comments Patient Comments Pt states she is tired. Therapy Pain Assessment Pain When Pain Assessed At Rest Pain Present Pain Present Pain Reported M4 PT-IP Mobility and Gait Start: 02/13/19 13:06 Freq: NEEDED Status: Active Protocol: Document 02/14/19 15:44 GGD (Rec: 02/14/19 15:46 GGD [id number]) PT-Bed Mobility Assessment Rolling Type of Rolling Log Rolling Roll to Right Level of Assist Standby Assistance Supine to Sit Supine to Sit Standby Assistance 1 Person Assistance Bedrails Sit to Supine Sit to Supine Minimal Assistance 1 Person Assistance Bedrails Scooting Scooting to Edge of Bed Standby Assistance PT-Transfer Assessment Sit to and From Stand Sit to and from Stand Contact Guard Assistance Use of Upper Extremities Equipment Transfer Assistive Device Gait Belt Front Wheeled Walker Orthotic/Prosthetic Devices or Brace: No Transfers Transfer Destination Chair Toilet Transfer Ability Level of Assist Contact Guard Assistance Use of Upper Extremities Gait Assessment Gait Gait Assistance Required: Contact Guard Assist 1 Person Assist Distance (Feet) 200 Able to Maintain Weight Bearing Status Yes During Gait Assistive Devices Assistive Device Gait Belt Front Wheeled Walker Orthotic/Prosthetic Devices or Brace: No Gait Deviations General Gait Pattern Antalgic Decreased Stride Length Decreased Feet Clearance Flexed Trunk Factors Limiting Gait Function Factors Limiting Gait Function Decreased Activity Tolerance Decreased Strength Difficulty Following Directions Limited Range of Motion Pain Poor Balance Poor Safety Awareness M5 PT-IP Objective Assessments Start: 02/13/19 13:06 Freq: NEEDED Status: Active Protocol: Document 02/13/19 09:55 AB (Rec: 02/13/19 13:19 AB [id number]) Orientation Orientation/Cognition Level of Alertness Alert Orientation Name Place Situation Language Function Ability No Deficits Noted Safety Awareness Understands Safety Issues Memory Description No Deficits Noted Gross Range of Motion Lower Extremity ROM Assessment Within Functional Limits Strength Lower Extremity Strength Assessment Bilaterally Impaired Hip 3+/5 Knee 3+/5 Coordination Assessment Gross Coordination Gross Coordination WNL Sensation Assessment Sensation Gross Sensation WNL Muscle Tone Muscle Tone WNL Yes M6 PT-IP Treatment Start: 02/13/19 13:06 Freq: NEEDED Status: Active Protocol: Document 02/14/19 15:44 GGD (Rec: 02/14/19 15:46 GGD [id number]) Physical Therapy Treatment Education Education Provided Precautions Safety M7 PT-IP Assessment and Plan Start: 02/13/19 13:06 Freq: NEEDED Status: Active Protocol: Document 02/14/19 15:44 GGD (Rec: 02/14/19 15:46 GGD [id number]) PT Summary Assessment and Plan Summary Assessment Summary Pt improving slowly. She needed less assist for supine to sit. She did need min A for sit to supine. She able to progress her gait distance. Frequency of Treatment Frequency Of Treatment Twice a Day Treatment Plan Physical Therapy Treatment Plan Bed Mobility Training Transfer Training Gait Training Therapeutic Exercise Balance Retraining Post Op Education Discharge Planning Hot or Cold Pack Neuromuscular Re-ed Coordination Retraining Manual Therapy Recommendations To Nursing Amount of Assist Needed 1 Person Assist Discharge Recommendations PT Discharge Recommendations Home with Assistance SNF Rehab
[2019-02-14] MEDS: SENNOSIDES 8.6 MG TABLET 17.2 MG PO (20:25)
[2019-02-14] MEDS: hydrOXYzine pamoate 25 MG CAPSULE PO (20:36)
[2019-02-15] VITALS (8 sets, daily range): BP systolic 134–150; BP diastolic 71–86; PULSE 80–85; RESP 16–18; TEMP 36.5–37.4; O2SAT 94–97
[2019-02-15] MEDS: OXYCODONE IR 5 MG TABLET 10 MG PO ×5 (03:35→23:43)
--- NOTE | 2019-02-15 07:57 | PM.PNPO.1 ---
Subjective Date Patient Seen: 02/15/19 Time Patient Seen: 07:57 Interval history: She is doing better. Pain level is much more manageable. She has been getting up and mobilizing but is essentially independent at this point. Exam Vital Signs (past 8 hours): - 02/15/19 01:30 02/15/19 04:55 Temperature 98.4 F 98.7 F Pulse Rate 80 82 Respiratory Rate 16 16 Blood Pressure 146/75 H 148/76 H Pulse Oximetry 96 97 Oxygen Delivery Method Room Air Oxygen Flow Rate 0 Const Orientation: alert and oriented x3 Back/Spine/Pelvis Other: Minimal dry drainage on dressing. 5/5 motor both lower extremities Objective Labs Result Diagrams: 02/13/19 05:15 Assessment & Plan Post-op Postoperative Procedures Operation Date: 02/12/19 07:45 Actual Procedures Side Surgeon p L4-5,L5-S1 TLIF w/Posterior Instru. Elier Hermosillo MD She is doing well. Mobilize 1 more time with physical therapy and discharge home today. Quality VTE Deep Vein Thrombosis/Pulmonary Embolism Present on Admission: No
--- NOTE | 2019-02-15 07:58 | PM.DS.1 ---
History of Present Illness Date Patient Seen: 02/15/19 Time Patient Seen: 07:58 Chief complaint: [id number] Narrative: 73-year-old female with a history of previous lumbar laminectomies. Recurrence of back and leg pain. Found to have recurrent spinal stenosis and spondylolisthesis Discharge Providers Date of admission: 02/12/19 06:02 Discharge Date: 02/15/19 Consults: 02/12/19 07:07 Consult to Respiratory Therapy Evaluate & Treat Comment: Physician Instructions: Evaluate and treat 02/12/19 13:55 Consult to Occupational Therapy Evaluate & Treat Comment: Physician Instructions: Evaluate and treat Consult to Physical Therapy Evaluate & Treat Comment: Physician Instructions: Evaluate and Treat Discharge provider: Pancho Lott MD Summary Discharge Diagnosis: Lumbar stenosis and spondylolisthesis Hospital Course: She was brought to the operating room on 02/12/2019 for revision decompression and fusion at L4-5 and L5-S1 by Dr Hermosillo. She slowly mobilized with physical therapy and by date of discharge was felt to be independent. Her pain levels were under good control with oral medications. Status at Discharge Cognitive/behavioral status at discharge: oriented Functional status at discharge: uses cane/walker Overall status at discharge: patient is progressing back to baseline Exam Vital Signs (past 8 hours): - 02/15/19 01:30 02/15/19 04:55 Temperature 98.4 F 98.7 F Pulse Rate 80 82 Respiratory Rate 16 16 Blood Pressure 146/75 H 148/76 H Pulse Oximetry 96 97 Oxygen Delivery Method Room Air Oxygen Flow Rate 0 Const Orientation: alert and oriented x3 Back/Spine/Pelvis Other: Minimal dry drainage on dressing. 5/5 motor both lower extremities Objective Labs Result Diagrams: 02/13/19 05:15 Discharge Plan Discharge Plan Patient Disposition: Home Discharge comment: f/u [address] Hermosillo Discharge Med Rec/Prescriptions Prescriptions: New docusate sodium [DOK] 100 mg Capsule 100 mg PO BID PRN (Reason: constipation) Qty: 30 RF: 0 hydroxyzine pamoate 25 mg Capsule 25 mg PO Q4HR PRN (Reason: spasms) Qty: 20 RF: 0 oxycodone 5 mg tablet See Rx Instructions .ROUTE .COMPLEX PRN (Reason: pain) Qty: 40 RF: 0 Continued losartan 100 MG tablet 100 mg PO QDAY Qty: 0 RF: 0 omeprazole 20 MG capsule,delayed release(DR/EC) 20 mg PO QDAY Qty: 0 RF: 0 multivitamin [Multiple Vitamins] 1 EACH tablet 1 tab PO QDAY Qty: 0 RF: 0 coenzyme Q10 [Co Q-10] 100 MG capsule 2 tab PO QDAY Qty: 0 RF: 0 amlodipine 5 mg Tablet 5 mg PO DAILY RF: 0 escitalopram oxalate 10 mg Tablet 10 mg PO DAILY RF: 0 aspirin 81 MG tablet,delayed release (DR/EC) 81 mg PO DAILY RF: 0 Follow up/Referrals: Elier Hermosillo MD [Physician] - Provider Discharge Instructions Diet: Diet as Tolerated and Regular Activity: No bending, lifting, or twisting. Use walker for support. Cold/Heat Therapy: Ice packs as needed Skin/Wound/Dressing Care Report to your healthcare provider any signs of infection, such as:: chills, fever, increased pain, unusual drainage and unusual redness Dressing: Leave dressing in place, will be removed at post operative visit. Call the office if any excessive staining of the dressing. Visit Report/Discharge Packet Instructions: DI for Transforaminal Lumbar Interbody Fusion Stand Alone Forms: Surgery Discharge Discharge Data Attending Provider: Elier Hermosillo Admit Date/Time: 02/12/19 06:02 Quality VTE Deep Vein Thrombosis/Pulmonary Embolism Present on Admission: No
[2019-02-15] MEDS: AMLODIPINE 5 MG TABLET PO (08:19)
[2019-02-15] MEDS: MULTIVITAMIN 1 TABLET 1 TAB PO (08:19)
[2019-02-15] MEDS: ESCITALOPRAM 10 MG TABLET PO (08:19)
[2019-02-15] MEDS: LOSARTAN 50 MG TABLET 100 MG PO (08:19)
[2019-02-15] MEDS: DOCUSATE 100 MG CAPSULE PO ×2 (08:20→20:20)
[2019-02-15] MEDS: PANTOPRAZOLE 20 MG TABLET PO (08:21)
--- NOTE | 2019-02-15 09:45 | PT.IPTN ---
Current Diagnoses Spondylolisthesis, lumbar region (02/12/19) Spinal stenosis, lumbar region without neurogenic claudication (02/12/19) Postlaminectomy syndrome, not elsewhere classified (02/12/19) Surgery Performed Operation Date: 02/12/19 07:45 Actual Procedures p L4-5,L5-S1 TLIF w/Posterior Instru. - Elier Hermosillo MD Physical Therapy Treatment Note M2 PT-IP Current Condition Start: 02/13/19 13:06 Freq: NEEDED Status: Active Protocol: Document 02/13/19 09:55 AB (Rec: 02/13/19 13:19 AB [id number]) Physical Therapy Current Condition Current Condition Evaluation Date 02/13/19 Treatment Diagnosis s/p L4-S1 fusion/lami; difficulty in walking Onset Date 02/12/19 Precautions Lumbar Precautions Log Roll No Twisting Limit Bending Lifting Restriction of 10 lbs Gait Belt above Incisional Area M3 PT-IP Subjective Start: 02/13/19 13:06 Freq: NEEDED Status: Active Protocol: Document 02/15/19 09:20 CLB (Rec: 02/15/19 11:56 CLB [id number]) Subjective Physical Therapy Visit Type Type Treatment Note Visit Start Time 09:20 Visit Stop Time 09:45 Total Visit Minutes 25 Number of PHYSICAL THERAPY AID Visits 3 Physical Therapy Visit Comments Patient Comments Pt willing to work with therapy. Therapy Pain Assessment Pain When Pain Assessed At Rest Pain Present Pain Present Pain Reported Location Lower Back Intensity 3 Scale Used Numeric (1 - 10) Pain Management Techniques Re-positioning Timing of Activity with Medications M4 PT-IP Mobility and Gait Start: 02/13/19 13:06 Freq: NEEDED Status: Active Protocol: Document 02/15/19 09:20 CLB (Rec: 02/15/19 11:56 CLB [id number]) PT-Bed Mobility Assessment Rolling Type of Rolling Log Rolling Roll to Right Level of Assist Standby Assistance Supine to Sit Supine to Sit Standby Assistance 1 Person Assistance Bedrails Scooting Scooting to Edge of Bed Standby Assistance PT-Transfer Assessment Sit to and From Stand Sit to and from Stand Contact Guard Assistance Use of Upper Extremities Equipment Transfer Assistive Device Gait Belt Front Wheeled Walker Orthotic/Prosthetic Devices or Brace: No Transfers Transfer Destination Chair Toilet Transfer Ability Level of Assist Contact Guard Assistance Use of Upper Extremities Comments Mobility Comments Pt able to perform own pericare. Gait Assessment Gait Gait Assistance Required: Standby Assistance 1 Person Assist Distance (Feet) 200 Assistive Devices Assistive Device Gait Belt Front Wheeled Walker Orthotic/Prosthetic Devices or Brace: No Gait Deviations General Gait Pattern Antalgic Decreased Stride Length Decreased Feet Clearance Flexed Trunk Factors Limiting Gait Function Factors Limiting Gait Function Decreased Activity Tolerance Decreased Strength Difficulty Following Directions Limited Range of Motion Pain Comments Gait Comments Pt ambulates safely with SBA ~ 200ft. Stair Climbing Assessment Comments Stair Climbing Comments Waiting for pt to arrive for training. M5 PT-IP Objective Assessments Start: 02/13/19 13:06 Freq: NEEDED Status: Active Protocol: Document 02/13/19 09:55 AB (Rec: 02/13/19 13:19 AB [id number]) Orientation Orientation/Cognition Level of Alertness Alert Orientation Name Place Situation Language Function Ability No Deficits Noted Safety Awareness Understands Safety Issues Memory Description No Deficits Noted Gross Range of Motion Lower Extremity ROM Assessment Within Functional Limits Strength Lower Extremity Strength Assessment Bilaterally Impaired Hip 3+/5 Knee 3+/5 Coordination Assessment Gross Coordination Gross Coordination WNL Sensation Assessment Sensation Gross Sensation WNL Muscle Tone Muscle Tone WNL Yes M6 PT-IP Treatment Start: 02/13/19 13:06 Freq: NEEDED Status: Active Protocol: Document 02/15/19 09:20 CLB (Rec: 02/15/19 11:56 CLB [id number]) Physical Therapy Treatment Exercises Exercises Ankle Pumps Education Education Provided Precautions Safety M7 PT-IP Assessment and Plan Start: 02/13/19 13:06 Freq: NEEDED Status: Active Protocol: Document 02/15/19 09:20 CLB (Rec: 02/15/19 11:56 CLB [id number]) PT Summary Assessment and Plan Summary Assessment Summary Pt used bed rail to assist her OOB otherwise was able to perform LR and supine to sit SBA. Pt improved with gait requiring SBA with good safety awareness and balance. Pt will need stair training with present before d/c home. Goals Bed Mobility Goal Standby Assistance Transfer Goal Standby Assistance Front Wheeled Walker Gait Goal Standby Assistance Front Wheel Walker Gait Distance 150 Other Goals up/down one platform step using FWW CGA Days to Meet Goals 5 Frequency of Treatment Frequency Of Treatment Twice a Day Treatment Plan Physical Therapy Treatment Plan Bed Mobility Training Transfer Training Gait Training Therapeutic Exercise Balance Retraining Post Op Education Discharge Planning Hot or Cold Pack Neuromuscular Re-ed Coordination Retraining Manual Therapy Other Recommendations and Next Treatment stair training, CG training. Focus Recommendations To Nursing Amount of Assist Needed 1 Person Assist Discharge Recommendations PT Discharge Recommendations Home with Assistance
--- NOTE | 2019-02-15 12:22 | CM.DPNOTE ---
DC Note: DC order placed by Dr Lott today, home w/spouse to assist. Spoke w/pt, she explained that she thinks she could back home w/spouse to assist. This HOSPICE REGISTERED NURSE placed call to Marco Antonio, P# [phone], requested that he come to for cg training and that pt had been DC today. Later spoke w/ Katelin, PT, who explained pt did great w/ stair training, walking and getting/from BR. Pt is concerned she will not make it to the BR in time because he has not gotten her a BSC. Pt also stating this afternoon she may not be ready to leave today, Katelin/ PT explains pt is a little shaky in rm but she has been cleared for DC home today w/ spouse to assist. Pt can safely DC home and DC order is in place. If pt complains further w/ RN about staying, RN will brii to place call to Orthopedic surgeon program production specialist today, Dr Lott, to discuss cancelling pt's DC. P: DC home w/supportive spouse via pov w/ outpt f/u. VIPUL Coello
--- NOTE | 2019-02-15 13:23 | PT.IPTN ---
Current Diagnoses Spondylolisthesis, lumbar region (02/12/19) Spinal stenosis, lumbar region without neurogenic claudication (02/12/19) Postlaminectomy syndrome, not elsewhere classified (02/12/19) Surgery Performed Operation Date: 02/12/19 07:45 Actual Procedures p L4-5,L5-S1 TLIF w/Posterior Instru. - Elier Hermosillo MD Physical Therapy Treatment Note M2 PT-IP Current Condition Start: 02/13/19 13:06 Freq: NEEDED Status: Active Protocol: Document 02/13/19 09:55 AB (Rec: 02/13/19 13:19 AB [id number]) Physical Therapy Current Condition Current Condition Evaluation Date 02/13/19 Treatment Diagnosis s/p L4-S1 fusion/lami; difficulty in walking Onset Date 02/12/19 Precautions Lumbar Precautions Log Roll No Twisting Limit Bending Lifting Restriction of 10 lbs Gait Belt above Incisional Area M3 PT-IP Subjective Start: 02/13/19 13:06 Freq: NEEDED Status: Active Protocol: Document 02/15/19 13:00 CLB (Rec: 02/15/19 15:09 CLB [id number]) Subjective Physical Therapy Visit Type Type Treatment Note Visit Start Time 13:00 Visit Stop Time 13:23 Total Visit Minutes 23 Number of STUDIO ARTIST Visits 4 Physical Therapy Visit Comments Patient Comments Pt willing to work with therapy. Therapy Pain Assessment Pain When Pain Assessed At Rest Pain Present Pain Present Pain Reported Location Lower Back Intensity 3 Scale Used Numeric (1 - 10) Pain Management Techniques Re-positioning Timing of Activity with Medications M4 PT-IP Mobility and Gait Start: 02/13/19 13:06 Freq: NEEDED Status: Active Protocol: Document 02/15/19 13:00 CLB (Rec: 02/15/19 15:09 CLB [id number]) PT-Bed Mobility Assessment Rolling Type of Rolling Log Rolling Roll to Right Level of Assist Standby Assistance Supine to Sit Supine to Sit Standby Assistance 1 Person Assistance Bedrails Sit to Supine Sit to Supine Standby Assistance Head of Bed Elevated Scooting Scooting to Edge of Bed Standby Assistance PT-Transfer Assessment Sit to and From Stand Sit to and from Stand Standby Assistance Use of Upper Extremities Equipment Transfer Assistive Device Gait Belt Front Wheeled Walker Orthotic/Prosthetic Devices or Brace: No Transfers Transfer Destination Bed Toilet Transfer Ability Level of Assist Standby Assistance Use of Upper Extremities Comments Mobility Comments Pt able to perform own pericare. Gait Assessment Gait Gait Assistance Required: Standby Assistance 1 Person Assist Distance (Feet) 20 Able to Maintain Weight Bearing Status Yes During Gait Assistive Devices Assistive Device Gait Belt Front Wheeled Walker Orthotic/Prosthetic Devices or Brace: No Gait Deviations General Gait Pattern Antalgic Decreased Stride Length Decreased Feet Clearance Flexed Trunk Factors Limiting Gait Function Factors Limiting Gait Function Decreased Activity Tolerance Decreased Strength Difficulty Following Directions Limited Range of Motion Pain Comments Gait Comments Pt refused further gait after stair training. Stair Climbing Assessment Evaluation Level of Assist On Stairs Contact Guard Assistance Devices Stair Climbing Assistive Devices Front Wheel Walker Technique/Endurance Stair Climbing Direction Ascend and Descend Stair Climbing Technique Step to Step Number of Steps Climbed 1 Stair Climbing Set # Repetitions (reps) 2 Comments Stair Climbing Comments Pt left room while pt was in bathroom and after waiting for pts to return he did not return before pt performed stair climbing. Once pt returned therapist demonstrated stair climbing for . M5 PT-IP Objective Assessments Start: 02/13/19 13:06 Freq: NEEDED Status: Active Protocol: Document 02/13/19 09:55 AB (Rec: 02/13/19 13:19 AB [id number]) Orientation Orientation/Cognition Level of Alertness Alert Orientation Name Place Situation Language Function Ability No Deficits Noted Safety Awareness Understands Safety Issues Memory Description No Deficits Noted Gross Range of Motion Lower Extremity ROM Assessment Within Functional Limits Strength Lower Extremity Strength Assessment Bilaterally Impaired Hip 3+/5 Knee 3+/5 Coordination Assessment Gross Coordination Gross Coordination WNL Sensation Assessment Sensation Gross Sensation WNL Muscle Tone Muscle Tone WNL Yes M6 PT-IP Treatment Start: 02/13/19 13:06 Freq: NEEDED Status: Active Protocol: Document 02/15/19 09:20 CLB (Rec: 02/15/19 11:56 CLB [id number]) Physical Therapy Treatment Exercises Exercises Ankle Pumps Education Education Provided Precautions Safety M7 PT-IP Assessment and Plan Start: 02/13/19 13:06 Freq: NEEDED Status: Active Protocol: Document 02/15/19 13:00 CLB (Rec: 02/15/19 15:09 CLB [id number]) PT Summary Assessment and Plan Summary Assessment Summary Pt is SBA for all mobility and transfers, pt able to safely perform platform stair climbing with FWW/CGA. Pt stated she felt shakey but was able to perform all tasks without c/o increased pain. Pt returned to bed with bilateral SCD on LEs, bed alarm on and all needs within reach. Goals Bed Mobility Goal Standby Assistance Transfer Goal Standby Assistance Front Wheeled Walker Gait Goal Standby Assistance Front Wheel Walker Gait Distance 150 Other Goals up/down one platform step using FWW CGA Days to Meet Goals 5 Frequency of Treatment Frequency Of Treatment Twice a Day Treatment Plan Physical Therapy Treatment Plan Bed Mobility Training Transfer Training Gait Training Therapeutic Exercise Balance Retraining Post Op Education Discharge Planning Hot or Cold Pack Neuromuscular Re-ed Coordination Retraining Manual Therapy Other Recommendations and Next Treatment stair training with . Focus Recommendations To Nursing Amount of Assist Needed 1 Person Assist Discharge Recommendations PT Discharge Recommendations Home with Assistance
--- NOTE | 2019-02-15 14:16 | PC.NURSE ---
Pt just complained of pain to her back with spasms. Given her second dose of oxycodone today and helpful. Pt was set to discharge today but is having some shaking when she gets up to ambulate. Back dressing is cdi. Family into visit and just left. Will call to let him know that pt will not go today.
[2019-02-15] MEDS: hydrOXYzine pamoate 25 MG CAPSULE PO (16:10)
--- NOTE | 2019-02-15 16:44 | PC.NURSE ---
Addendum entered by Kitty Magana R.N. 02/15/19 21:00: Had episode of anxiety and just not right Med @ 1800 for discomfort w/good relief. HL intact/patent. Assisted several times to BSC to void Stable post op course. Call light w/in reach, bed alarm on for pt safety. Continue w/plan of care. . Original Note: Pt discomfort w/spasms Given vistaril at 1615 w/ fair relief. Dsg to back CDI Assisted to BR w/o incidence. Lungs clear, SpO2 97% RA HL intact/patent. Call light w/in reach, pt calls appropriately for needs.
[2019-02-15] MEDS: SENNOSIDES 8.6 MG TABLET 17.2 MG PO (20:20)
[2019-02-16 03:31] VITALS: BP 158/78; PULSE 89; RESP 16; TEMP 37; O2SAT 93
[2019-02-16] MEDS: OXYCODONE IR 5 MG TABLET 10 MG PO (05:11)
--- NOTE | 2019-02-16 06:06 | PC.NURSE ---
Medicated x 2 doses of Oxycodone 10 mg. this shift. Ambulated to the BR X2 doing well with her mobility. Will cont. POc & monitor.
[2019-02-16] MEDS: AMLODIPINE 5 MG TABLET PO (08:20)
[2019-02-16] MEDS: DOCUSATE 100 MG CAPSULE PO (08:21)
[2019-02-16] MEDS: ESCITALOPRAM 10 MG TABLET PO (08:21)
[2019-02-16] MEDS: LOSARTAN 50 MG TABLET 100 MG PO (08:21)
[2019-02-16] MEDS: MULTIVITAMIN 1 TABLET 1 TAB PO (08:22)
[2019-02-16] MEDS: PANTOPRAZOLE 20 MG TABLET PO (08:22)
[2019-02-16 08:25] VITALS: BP 149/78; PULSE 74; RESP 16; TEMP 36.8; O2SAT 94
--- NOTE | 2019-02-16 09:27 | PT.IPTN ---
Current Diagnoses Spondylolisthesis, lumbar region (02/12/19) Spinal stenosis, lumbar region without neurogenic claudication (02/12/19) Postlaminectomy syndrome, not elsewhere classified (02/12/19) Surgery Performed Operation Date: 02/12/19 07:45 Actual Procedures p L4-5,L5-S1 TLIF w/Posterior Instru. - Elier Hermosillo MD Physical Therapy Treatment Note M2 PT-IP Current Condition Start: 02/13/19 13:06 Freq: NEEDED Status: Active Protocol: Document 02/13/19 09:55 AB (Rec: 02/13/19 13:19 AB [id number]) Physical Therapy Current Condition Current Condition Evaluation Date 02/13/19 Treatment Diagnosis s/p L4-S1 fusion/lami; difficulty in walking Onset Date 02/12/19 Precautions Lumbar Precautions Log Roll No Twisting Limit Bending Lifting Restriction of 10 lbs Gait Belt above Incisional Area M3 PT-IP Subjective Start: 02/13/19 13:06 Freq: NEEDED Status: Active Protocol: Document 02/16/19 09:16 GENEVIEVE (Rec: 02/16/19 09:27 LJ [id number]) Subjective Physical Therapy Visit Type Type Treatment Note Visit Start Time 09:00 Visit Stop Time 09:18 Total Visit Minutes 18 Number of SECURITY SYSTEMS ADMINISTRATOR Visits 5 Physical Therapy Visit Comments Patient Comments Pt willing to work with therapy. Therapy Pain Assessment Pain When Pain Assessed At Rest Pain Present Pain Present Pain Reported M4 PT-IP Mobility and Gait Start: 02/13/19 13:06 Freq: NEEDED Status: Active Protocol: Document 02/16/19 09:16 GENEVIEVE (Rec: 02/16/19 09:27 LJ [id number]) PT-Bed Mobility Assessment Rolling Type of Rolling Log Rolling Roll to Right Level of Assist Standby Assistance Supine to Sit Supine to Sit Standby Assistance 1 Person Assistance Bedrails Scooting Scooting to Edge of Bed Standby Assistance PT-Transfer Assessment Sit to and From Stand Sit to and from Stand Standby Assistance Use of Upper Extremities Equipment Transfer Assistive Device Gait Belt Front Wheeled Walker Orthotic/Prosthetic Devices or Brace: No Transfers Transfer Destination Chair Transfer Ability Level of Assist Standby Assistance Use of Upper Extremities Comments Mobility Comments Pt able to safely perform bed mobility and transfers slowly with use of UEs. Gait Assessment Gait Gait Assistance Required: Standby Assistance 1 Person Assist Distance (Feet) 300 Able to Maintain Weight Bearing Status Yes During Gait Assistive Devices Assistive Device Gait Belt Front Wheeled Walker Orthotic/Prosthetic Devices or Brace: No Gait Deviations General Gait Pattern Antalgic Decreased Stride Length Decreased Feet Clearance Factors Limiting Gait Function Factors Limiting Gait Function Decreased Activity Tolerance Decreased Strength Limited Range of Motion Pain Comments Gait Comments Pt improved posture and distance with gait. Demonstrates safety with gait and transfers. M5 PT-IP Objective Assessments Start: 02/13/19 13:06 Freq: NEEDED Status: Active Protocol: Document 02/13/19 09:55 AB (Rec: 02/13/19 13:19 AB [id number]) Orientation Orientation/Cognition Level of Alertness Alert Orientation Name Place Situation Language Function Ability No Deficits Noted Safety Awareness Understands Safety Issues Memory Description No Deficits Noted Gross Range of Motion Lower Extremity ROM Assessment Within Functional Limits Strength Lower Extremity Strength Assessment Bilaterally Impaired Hip 3+/5 Knee 3+/5 Coordination Assessment Gross Coordination Gross Coordination WNL Sensation Assessment Sensation Gross Sensation WNL Muscle Tone Muscle Tone WNL Yes M6 PT-IP Treatment Start: 02/13/19 13:06 Freq: NEEDED Status: Active Protocol: Document 02/15/19 09:20 CLB (Rec: 02/15/19 11:56 CLB [id number]) Physical Therapy Treatment Exercises Exercises Ankle Pumps Education Education Provided Precautions Safety M7 PT-IP Assessment and Plan Start: 02/13/19 13:06 Freq: NEEDED Status: Active Protocol: Document 02/16/19 09:16 LJ (Rec: 02/16/19 09:27 LJ [id number]) PT Summary Assessment and Plan Summary Assessment Summary Pt SBA for all mobility and gait. Aware of limitations in gait distance when her knees are starting to fatigue. Minimal back pain during gait. Goals Bed Mobility Goal Standby Assistance Transfer Goal Standby Assistance Front Wheeled Walker Gait Goal Standby Assistance Front Wheel Walker Gait Distance 150 Other Goals up/down one platform step using FWW CGA Frequency of Treatment Frequency Of Treatment Twice a Day Treatment Plan Physical Therapy Treatment Plan Bed Mobility Training Transfer Training Gait Training Therapeutic Exercise Balance Retraining Post Op Education Discharge Planning Hot or Cold Pack Neuromuscular Re-ed Coordination Retraining Manual Therapy Recommendations To Nursing Amount of Assist Needed 1 Person Assist Discharge Recommendations PT Discharge Recommendations Home with Assistance
--- NOTE | 2019-02-16 10:39 | PC.NURSE ---
Went over dc instructions and meds with patient, questions answered. RX for new meds given. Dressing to back changed, galilea intact, no drainage noted. Patient taken via wc to vehicle driven by spouse. Patient had all belongings.
--- NOTE | 2019-02-16 11:04 | OT.IP.TRT ---
Current Diagnoses Spondylolisthesis, lumbar region (02/12/19) Spinal stenosis, lumbar region without neurogenic claudication (02/12/19) Postlaminectomy syndrome, not elsewhere classified (02/12/19) Surgery Performed Operation Date: 02/12/19 07:45 Actual Procedures p L4-5,L5-S1 TLIF w/Posterior Instru. - Elier Hermosillo MD
--- NOTE | 2019-02-16 11:07 | OT.IP.TRT ---
Current Diagnoses Spondylolisthesis, lumbar region (02/12/19) Spinal stenosis, lumbar region without neurogenic claudication (02/12/19) Postlaminectomy syndrome, not elsewhere classified (02/12/19) Surgery Performed Operation Date: 02/12/19 07:45 Actual Procedures p L4-5,L5-S1 TLIF w/Posterior Instru. - Elier Hermosillo MD Occupational Therapy Treatment Note M3 OT- IP Subjective and Pain Start: 02/13/19 14:36 Freq: Status: Active Protocol: Document 02/16/19 10:58 [facility] (Rec: 02/16/19 11:04 [facility] [id number]) OT- Subjective Occupational Therapy Visit Type Type Treatment Note Visit Start Time 08:55 Visit Stop Time 09:50 Total Visit Minutes 55 Occupational Therapy Visit Comments Patient Comments Pt agreeable to shower. OT Pain Assessment Pain When Pain Assessed During Mobility Pain Present Pain Present Pain Reported Location Lower Back Intensity 5 Scale Used Numeric (1 - 10) M4 OT- IP ADL's Start: 02/13/19 14:36 Freq: Status: Active Protocol: Document 02/16/19 10:58 [facility] (Rec: 02/16/19 11:04 [facility] [id number]) OT ADL-Dressing General Eval Upper Body Dressing Ability Independent Lower Body Dressing Ability Minimal Assistance Areas Needing Assistance Underpants/Brief Socks Assistive Devices Dressing Assistive Devices Dressing Stick Jewelry Finisher Sock Aid Comments OT Dressing Comments KAMALA to get right foot into brief. OT ADL-Toileting General Evaluation Toileting Ability Standby Assistance Comments OT Toileting Comments vc to stand to wiipe as pt tend to twist to wipe, pt educated on information of use of toilet aid. OT ADL-Bathing Bathing Type Bathing Type Shower General Evaluation Bathing Ability Minimal Assistance Areas Needing Assistance Retrieving/Setting Up Items Wash/Dry Lower Extremities Devices Bathing Equipment Hand Held Shower Sprayer Shower Chair with Arms M6 OT- IP Functional Cognition Start: 02/13/19 14:36 Freq: Status: Active Protocol: Document 02/16/19 10:58 [facility] (Rec: 02/16/19 11:04 [facility] [id number]) Cognitive Factors Limiting Selfcare Function Cognitive Ability Level of Alertness Alert Patient Orientation Name Place Situation Attention Span Ability Capable of Focused Attention Capable of Sustained Attention Ability to Follow Commands Able to Follow Multi-Step Commands Memory Description Short Term Impaired Safety Awareness Decreased Recall of Precautions Decreased Ability to Apply Precautions Underestimates Need for Assistance Problem Solving Ability Unable to Identify Errors Needs Assist to Identify Solutions Cognitive Comments Cognitive Assessment Comments Cues not to twist during ADl needs. M7 OT- IP Mobility and Balance Start: 02/13/19 14:36 Freq: Status: Active Protocol: Document 02/16/19 10:58 [facility] (Rec: 02/16/19 11:04 [facility] [id number]) OT- Bed Mobility Assessment Rolling Type of Rolling Log Rolling Level of Assistance Standby Assistance Bedrails Sit to Supine Sit to Supine Assist Standby Assistance Scooting Scooting to Edge of Bed Standby Assistance OT-Transfer Assessment Sit to and From Stand Sit to and from Stand Standby Assistance Transfers Transfer Ability Standby Assistance Contact Guard Assistance Technique Transfer Destination Bed Bedside Commode Chair Shower Stall Devices Transfer Assistive Devices Bed Rail Gait Belt Front Wheeled Walker OT- Gait Assessment Gait Gait Assistance Required: Standby Assistance Assistive Devices Assistive Device Gait Belt Front Wheeled Walker M9 OT- IP Assessment and Plan Start: 02/13/19 14:36 Freq: Status: Active Protocol: Document 02/16/19 10:58 [facility] (Rec: 02/16/19 11:04 [facility] [id number]) OT Summary Assessment and Plan Summary Assessment Summary Pt doing well and discharging today with to assist. Discharge Recommendations OT Discharge Recommendations Home with Assistance
--- NOTE | 2019-02-24 10:18 | PM.DS.1 ---
History of Present Illness Date Patient Seen: 02/24/19 Time Patient Seen: 10:18 Chief complaint: [id number] Narrative: Hospital day 5, postop day 4 following L4-5, L5-S1 TLIF, cage, ICBG, posterior screw fixation by Dr. Hermosillo. Patient was discharged home yesterday but had anxiety and not ready to go home. I remained stable overnight. Ready for discharge home on postop day 4. Discharge Providers Date of admission: 02/12/19 06:02 Discharge Date: 02/16/19 Consults: 02/12/19 07:07 Consult to Respiratory Therapy Evaluate & Treat Comment: Physician Instructions: Evaluate and treat 02/12/19 13:55 Consult to Occupational Therapy Evaluate & Treat Comment: Physician Instructions: Evaluate and treat Consult to Physical Therapy Evaluate & Treat Comment: Physician Instructions: Evaluate and Treat Discharge provider: Sudheer Han PA-C Summary Discharge Diagnosis: Status post L4-5, L5-S1 TLIF, cage, ICBG, posterior screw fixation. Hospital Course: Patient brought to hospital on 02/12/2019 for above noted surgery. He remained stable postoperatively but progressed slowly with physical therapy and pain management. He was to be discharged home on 02/15/2019 but became anxious and not ready for discharge and was kept overnight. Patient doing better on postop day 4 and ready for discharge home. Status at Discharge Cognitive/behavioral status at discharge: oriented Functional status at discharge: uses cane/walker Overall status at discharge: patient is progressing back to baseline Time Spent with Patient Less than 30 minutes Exam Vital Signs (past 8 hours): Oxygen Delivery Method Room Air Oxygen Flow Rate 0 Objective Labs Result Diagrams: 02/13/19 05:15 Discharge Plan Discharge Plan Patient Disposition: Home Discharge comment: f/u [address] Hermosillo Discharge Med Rec/Prescriptions Prescriptions: New docusate sodium [DOK] 100 mg Capsule 100 mg PO BID PRN (Reason: constipation) Qty: 30 RF: 0 hydroxyzine pamoate 25 mg Capsule 25 mg PO Q4HR PRN (Reason: spasms) Qty: 20 RF: 0 oxycodone 5 mg tablet See Rx Instructions .ROUTE .COMPLEX PRN (Reason: pain) Qty: 40 RF: 0 Continued losartan 100 MG tablet 100 mg PO QDAY Qty: 0 RF: 0 omeprazole 20 MG capsule,delayed release(DR/EC) 20 mg PO QDAY Qty: 0 RF: 0 multivitamin [Multiple Vitamins] 1 EACH tablet 1 tab PO QDAY Qty: 0 RF: 0 coenzyme Q10 [Co Q-10] 100 MG capsule 2 tab PO QDAY Qty: 0 RF: 0 amlodipine 5 mg Tablet 5 mg PO DAILY RF: 0 escitalopram oxalate 10 mg Tablet 10 mg PO DAILY RF: 0 aspirin 81 MG tablet,delayed release (DR/EC) 81 mg PO DAILY RF: 0 Follow up/Referrals: Elier Hermosillo MD [Physician] - Provider Discharge Instructions Diet: Diet as Tolerated and Regular Activity: No bending, lifting, or twisting. Use walker for support. Cold/Heat Therapy: Ice packs as needed Skin/Wound/Dressing Care Report to your healthcare provider any signs of infection, such as:: chills, fever, increased pain, unusual drainage and unusual redness Dressing: Leave dressing in place, will be removed at post operative visit. Call the office if any excessive staining of the dressing. Visit Report/Discharge Packet Instructions: Oxycodone, Hydroxyzine, DI for Transforaminal Lumbar Interbody Fusion Stand Alone Forms: Surgery Discharge Discharge Data Attending Provider: Elier Hermosillo Admit Date/Time: 02/12/19 06:02 Discharges patient from system. Discharge Date/Time: 02/16/19 10:40 Quality VTE Deep Vein Thrombosis/Pulmonary Embolism Present on Admission: No
== END 2019-02-16 10:40 | disposition home or self-care (01) | DRG 455 ==
PROVIDERS: Admitting Provider Orthopaedic Surgery Orthopaedic Surgery of the Spine; Visit Provider Orthopaedic Surgery Orthopaedic Surgery of the Spine
PROC: 0SG00AJ Fusion of Lumbar Vertebral Joint with Interbody Fusion Device, Posterior Approach, Anterior Column, Open Approach (ICD-10-PCS; principal; 2019-02-12 07:45)
DX: M43.16 Spondylolisthesis, lumbar region (principal); M48.061 Spinal stenosis, lumbar region without neurogenic claudication; M96.1 Postlaminectomy syndrome, not elsewhere classified; E66.9 Obesity, unspecified; Z68.37 Body mass index [BMI] 37.0-37.9, adult; I10 Essential (primary) hypertension; G47.33 Obstructive sleep apnea (adult) (pediatric)
CPT/HCPCS: 36415; 72100; 76000; 85014; 85018; 97116; 97162; 97165; 97530; 97535; C1776; C9290; J0330; J0690; J1100; J1170; J2270; J2405; J2704; J3010; J3410